=== PATIENT | female | born 1970 | race Hispanic/Latino ===

== ENCOUNTER 2019-05-23 13:23 | Emergency (ER) | payer MEDICAID, OTHER ==
[~2019-05-23] VITALS: Ht 160 cm; Wt 74.4 kg
[2019-05-23] MEDS ORDERED: GI COCKTAIL 50ML BTL(HYOSCYAMINE/MAALOX/LIDOCAINE VISCOUS)(1:3:1) PO ONE (14:00)
[2019-05-23] MEDS ORDERED: ASPIRIN 81 MG CHEW TABLET PO ONE (14:00)
[2019-05-23] MEDS ORDERED: FLUO20CA19 PO (14:15)
[2019-05-23] MEDS ORDERED: QUET1TAB8 PO (14:15)
[2019-05-23] MEDS ORDERED: QUET1TAB7 PO (14:15)
[2019-05-23 14:17] LABS: BASO % 0.2 % (0.0-1.0); EOS # 0.3 10^3/uL (0.0-0.5); EOS % 4.6 % (0.0-3.0); HEMOGLOBIN 14.1 g/dl (12.0-15.5); LYMPH # 1.9 10^3/uL (1.5-5.0); LYMPH % 33.2 % (24.0-44.0); MEAN CORPUSCULAR HEMOGLOBIN 29.5 pg (27.0-33.0); MEAN CORPUSCULAR HGB CONC 32.8 g/dl (32.0-36.5); MONO # 0.3 10^3/uL (0.0-0.8); NEUTROPHILS # 3.2 10^3/uL (1.5-8.5); NEUTROPHILS % 55.8 % (36.0-66.0); PLATELET COUNT, AUTOMATED 201 10^3/uL (150-450); RED BLOOD COUNT 4.78 10^6/uL (4.00-5.40); WHITE BLOOD COUNT 5.7 10^3/uL (4.0-10.0)
--- NOTE | 2019-05-23 14:43 | REP ---
Portable chest, 02:21 p.m., single AP view with the the patient upright: There are no comparisons. The lung mascorro are clear. The cardiac size is normal. The argenis, mediastinum, and skeletal structures are unremarkable. There is a pacemaker lead entering from left. The power pack has been removed. There is a loop recorder. Impression: Negative portable chest. Electronically Signed by Raymon Santana MD 05/23/2019 02:34 P
[2019-05-23 14:48] LABS: ALBUMIN 3.7 GM/DL (3.2-5.2); ALT/SGPT 18 U/L (12-78); BILIRUBIN,DIRECT 0.1 MG/DL (0.0-0.2); BILIRUBIN,TOTAL 0.3 MG/DL (0.2-1.0); BLOOD UREA NITROGEN 7 MG/DL (7-18); CALCIUM LEVEL 9.3 MG/DL (8.5-10.1); CARBON DIOXIDE LEVEL 27 MEQ/L (21-32); CHLORIDE LEVEL 107 MEQ/L (98-107); CK-MB VALUE MASS < 1.0 NG/ML (<3.6); CPK CREATINE PHOSPHOKINASE 59 U/L (26-192); CREATININE FOR GFR 0.78 MG/DL (0.55-1.30); GLOMERULAR FILTRATION RATE > 60.0 (>58); GLUCOSE, FASTING 93 MG/DL (70-100); LIPASE 171 U/L (73-393); MB/CK RELATIVE INDEX 1.69 (< OR =4); NT-PRO BNP 95 PG/ML (<125); POTASSIUM SERUM 3.8 MEQ/L (3.5-5.1); SODIUM LEVEL 141 MEQ/L (136-145); THYROID STIMULATING HORMONE 0.834 uIU/ML (0.358-3.740); TROPONIN I < 0.02 NG/ML (< 0.10)
[2019-05-23] MEDS ORDERED: ONDANSETRON 4 MG ORAL DISINTEGRATING TAB (Q0162 PER 1MG) PO ONE (17:00)
[2019-05-23] MEDS ORDERED: ACETAMINOPHEN TAB 650MG DOSE (2X325MG) PO ONE (17:00)
[2019-05-23 19:15] LABS: CK-MB VALUE MASS < 1.0 NG/ML (<3.6); CPK CREATINE PHOSPHOKINASE 53 U/L (26-192); MB/CK RELATIVE INDEX 1.89 (< OR =4); TROPONIN I < 0.02 NG/ML (< 0.10)
[2019-05-23 19:32] VITALS: BP 142/77
--- NOTE | 2019-05-23 20:46 | ECGEPIP ---
[facility] - ED Test Date: 2019-05-23 Pat Name: SHABBIR LABOY Department: Room: - Gender: Female Adult Manager: CT : 1970 Requested By: ARNOLD DANIEL Order Number: [id number] Reading MD: Omayra Bustos Measurements Intervals [place] Rate: 70 P: 38 WI: 174 QRS: -50 QRSD: 144 T: 45 QT: 400 QTc: 434 Interpretive Statements SINUS RHYTHM MARKED LEFT AXIS DEVIATION LEFT BUNDLE BRANCH BLOCK NO PRIOR Electronically Signed on 05-23-2019 20:46:36 EDT by Omayra Bustos
--- NOTE | 2019-05-23 20:50 | ECGEPIP ---
[facility] - ED Test Date: 2019-05-23 Pat Name: SHABBIR LABOY Department: Room: - Gender: Female Inspector [employer]: : 1970 Requested By: ARNOLD DANIEL Order Number: [id number] Reading MD: Omayra Bustos Measurements Intervals [place] Rate: 60 P: 33 NM: 180 QRS: -38 QRSD: 149 T: 42 QT: 434 QTc: 437 Interpretive Statements SINUS RHYTHM MARKED LEFT AXIS DEVIATION LEFT BUNDLE BRANCH BLOCK DECREASED RATE 13:38 Electronically Signed on 05-23-2019 20:49:48 EDT by Omayra Bustos
== END 2019-05-23 19:46 | disposition home or self-care (01) ==
LOC: M ED 13:23
DX: R07.89 Other chest pain (principal); I44.7 Left bundle-branch block, unspecified; I25.10 Atherosclerotic heart disease of native coronary artery without angina pectoris; I50.9 Heart failure, unspecified; Z95.818 Presence of other cardiac implants and grafts; Z95.0 Presence of cardiac pacemaker; F12.10 Cannabis abuse, uncomplicated; Z79.899 Other long term (current) drug therapy; Z88.8 Allergy status to other drugs, medicaments and biological substances
CPT/HCPCS: 71045; 80048; 80076; 82550; 82553; 83690; 83880; 84443; 84484; 85025; 93005; 93041; 94760; 99285; Q0162